=== PATIENT | female | born 1955 | race Caucasian/White ===

== ENCOUNTER 2019-02-23 07:39 | Outpatient (CLI) | payer BC ==
--- NOTE | 2019-02-23 11:10 | ULT ---
ULTRASOUND RETROPERITONEUM COMPLETE: (RENAL) Date: 02/23/19 HISTORY: 63-year-old female with hematuria. FINDINGS: Right kidney: 10 x 5 x 6 cm. Left kidney: 11.5 x 5 x 5 cm. No hydronephrosis bilaterally. No moderate sized or large renal cyst identified. Focal enlargement of left renal mid-lower pole parenchyma with thickness of 3 cm has echogenicity sim ilar to that of surrounding renal parenchyma, and is probably a dromedary hump rather than a neoplasm . Urinary bladder volume is 465 mL. IMPRESSION: 1. Distended urinary bladder. 2. Otherwise negative. JN R POS: [facility]
== END 2019-02-23 07:40 | disposition home or self-care (01) ==
LOC: ULT 07:39
PROVIDERS: ATTEND Student in an Organized Health Care Education/Training Program
DX: R10.9 Unspecified abdominal pain (principal); R31.9 Hematuria, unspecified; N32.89 Other specified disorders of bladder
CPT/HCPCS: 76770

== ENCOUNTER 2019-06-06 08:10 | Outpatient (CLI) | payer BC, OTHER ==
--- NOTE | 2019-06-06 08:40 | CT ---
CT Stone Protocol 06/06/2019 12:00 AM HISTORY: Right flank pain for couple of months. Calculus of kidney. COMPARISON: None. Technique: Multiple contiguous axial CT images are obtained through the abdomen and pelvis without IV contrast. Coronal reformats are provided. FINDINGS: This examination is limited for the evaluation of solid organs and vascular structures due to the lac k of intravenous contrast. Lower Chest: There is bibasilar atelectasis. Abdomen: Liver: Grossly normal nonenhanced CT appearance. Gallbladder: Within normal limits for CT imaging. Pancreas: Grossly normal nonenhanced CT appearance. Spleen: Grossly nonenhanced CT appearance. Adrenals: There is a small 8 mm hypodense nodule involving the right adrenal gland demonstrating an a ttenuation coefficient most compatible with an adrenal adenoma. There is a larger hypodense nodule involving the left adrenal gland measuring 1.7 cm. However, the attenuation coefficient of this nodul e is not compatible with a lipid rich adrenal adenoma. Kidneys: A nonobstructing inferior pole left renal calculus measuring 4 mm is present. No right renal calculus is identified. A small 9 mm fat density lesion is seen within the midportion of the left kidney suggesting an angiomyolipoma. There is no hydronephrosis seen bilaterally. Ureters: No ureteral calculus is seen.. Pelvis: Urinary bladder: within normal limits. Reproductive Organs: A small coarse calcification is seen within the uterine fundus likely due to sma ll calcified uterine fibroid. There are several calcifications present within a right adnexal masslike structure likely related to patient's right ovary. This is nonspecific. Lymph Nodes: No enlarged lymph nodes. Bowel: Normal caliber. Appendix: The appendix is normal in caliber. Peritoneum: No free fluid, free air, or fluid collection. Retroperitoneum: within normal limits. Vessels: Vascular calcifications are seen in the abdominal aorta and involving the iliac arteries.. Abdominal Wall: within normal limits. Bones: Mild degenerative changes noted in the spine. IMPRESSION: 1. Nodule left adrenal gland which cannot be characterized as an adrenal adenoma. CT scan following a drenal mass protocol with washout imaging is recommended for further evaluation versus MRI. 2. Nonobstructing left renal calculus. 3. Left renal angiomyolipoma. 4. No ureteral calculi are seen bilaterally, and there is no hydronephrosis. 5. Tiny right adrenal adenoma. 6. Colonic diverticulosis.
== END 2019-06-06 08:11 | disposition home or self-care (01) ==
LOC: BICCT 08:10
PROVIDERS: ATTEND Urology
DX: N20.0 Calculus of kidney (principal); E27.8 Other specified disorders of adrenal gland; D17.71 Benign lipomatous neoplasm of kidney; K57.30 Diverticulosis of large intestine without perforation or abscess without bleeding; D35.01 Benign neoplasm of right adrenal gland
CPT/HCPCS: 74176